=== PATIENT | female | born 1950 | race African-American/Black ===

== ENCOUNTER → 2018-03-19 | Outpatient (CLI) | payer OTHER ==
[2016-10-18 08:37] VITALS: BP 128/88
[~2018-03-19] MED LIST: CITROMA ONE
--- NOTE | 2018-03-20 07:57 | RAD ---
HISTORY: Abdominal pain. History of colon cancer. Study: PA chest with supine and upright abdominal views. Comparison: 10/17/2016 Findings: The lungs are clear. The heart size is normal. Mild tortuosity of the aorta is present. A left-cristin ed Port-A-Cath is present and the tip is in the superior vena cava. Examination of the abdomen demonstrates scattered large and small bowel gas. A moderate amount of st ool is present in the ascending colon, descending colon and region of the rectum. I see no definite evidence of bowel obstruction or pneumoperitoneum. Moderate osteopenia is present. No acute bony ab normalities are identified. IMPRESSION: 1. No radiographic evidence of acute cardiopulmonary disease or significant change is noted when com pared to the prior examination. 2. Moderate amount of stool within the ascending colon , descending colon and rectum. 3. I see no evidence of bowel obstruction or pneumoperitoneum. Reported By:
== END ==
LOC: RAD 14:29
PROVIDERS: ATTEND Obstetrics & Gynecology Obstetrics
DX: R10.84 Generalized abdominal pain (principal)
CPT/HCPCS: 74022

== ENCOUNTER 2020-01-28 19:10 | Inpatient (IN) ==
--- NOTE | 2020-01-28 19:56 | RAD ---
HISTORY:CongestionStudy: Single view chestComparison:NoneFindings:Single portable views limited by patient rotation. There is a left subclavian CVL in place appear no infiltrate, effusion, or pneumothorax identified .Cardiac and mediastinal contours are within normal limits .The soft tissues are intact .IMPRESSION:1. Negative limited portable chest radiograph.Electronically signed by: LUIS EDUARDO GRANGER (Jan 28, 2020 19:54:08)
[2020-01-28 20:00] LABS: BASOPHILS % (AUTO) 0.4 % (0.2-1.0); EOSINOPHILS # (AUTO) 0.1 x10^3/uL (0.0-0.2); EOSINOPHILS % (AUTO) 1.6 % (0.9-2.9); HEMATOCRIT 42.5 % (36.0-47.0); HEMOGLOBIN 13.7 g/dL (12.0-16.0); LYMPHOCYTES # (AUTO) 2.4 X10^3/uL (1.3-2.9); LYMPHOCYTES % (AUTO) 32.4 % (21.0-51.0); MEAN CORPUSCULAR HEMOGLOBIN 29.1 pg (27.0-34.0); MEAN CORPUSCULAR HGB CONC 32.3 g/dL (33.0-35.0); MEAN CORPUSCULAR VOLUME 90.1 fL (80.0-100.0); MEAN PLATELET VOLUME 10.4 fL (7.4-11.0); MONOCYTES # (AUTO) 0.6 x10^3/uL (0.3-0.8); MONOCYTES % (AUTO) 8.1 % (0.0-13.0); NEUTROPHILS # (AUTO) 4.2 x10^3/uL (2.2-4.8); NEUTROPHILS % (AUTO) 57.5 % (42.0-75.0); PLATELET COUNT 158 X10^3/uL (150.0-450.0); RED BLOOD COUNT 4.71 X10^6/uL (3.5-5.4); RED CELL DISTRIBUTION WIDTH 13.6 % (11.6-16.5); WHITE BLOOD COUNT 7.4 X10^3/uL (3.6-10.0)
[2020-01-28 20:19] LABS: ALANINE AMINOTRANSFERASE 14 Units/L (12-78); ALBUMIN 3.6 g/dL (3.4-5.0); ALKALINE PHOSPHATASE 91 Units/L (46-116); ASPARTATE AMINO TRANSFERASE 17 Units/L (15-37); BLOOD UREA NITROGEN 24 mg/dL (7-18); CALCIUM 9.8 mg/dL (8.5-10.1); CKMB % 0.9 % (<4); CREATINE KINASE 113 Units/L (26-192); CREATINE KINASE MB < 1.0 ng/mL (0-4.0); CREATININE 0.95 mg/dL (0.55-1.02); TOTAL PROTEIN 7.8 g/dL (6.4-8.2); TROPONIN I < 0.02 ng/mL (0-1.5); eGFR NON BLACK RACES > 60 (>60)
[2020-01-28 20:28] LABS: CHLORIDE 122 mmol/L (98-107); SODIUM 160 mmol/L (136-145)
--- NOTE | 2020-01-28 20:32 | DR.SOBA ---
HPI Time Seen Time Seen by Provider: 01/28/20 20:20 Primary Care Physician Primary Care Physician: CALISTA HPI Comment HPI Comment: PATIENT IS 69YR OLD FEMALE IN ER FROM [facility] WITH LOW HEART RATE AND LOW OXYGEN SATURATION RATE. IN ER, PULSE AND OXYGEN SATURATION WAS BACK TO NORMAL. PATIENT IS NON COMMUNICATING. NO FEVER. THICK YELLOW MUCOUS NOTED COMING FROM MOUTH. Complaints Chief Complaint Doctors Comments: FROM [facility] WITH LOW OXYGEN SATURATION AND LOW PULSE RATE. Chief Complaint:: VITALY FROM [facility] CALLED REPORT THAT PATIENTS SAT'S WERE ONLY IN THE 80'S AND HER PULSE RATE ONLY IN THE 30'S AND 40'S" Reviewed Nurses Notes Reviewed: Yes Source History Provided: [facility] Mode of Arrival Mode of Arrival: Stretcher Timing Onset of Chief Complaint: 01/28/20 Duration Duration: Minutes Context Onset:: At Rest PE Risk Factors:: Immobilization PMH PMH Past Medical History: Yes Past Medical History: Alzheimers and CVA Past Surgical History: Yes Surgical History: Abdominal Surgery and Bowel Resection Family History History of Family Medical Conditions: Yes Family Medical History: Cancer and Hypertension Social History Do you use any recreational Drugs:: No Lives Where: Prison Travel Risk Conronavirus risk: Travel to [facility] or contact with high risk person(s).: No Has patient experienced Coronavirus symptoms: No Infectious screening In the last 2 months have you had wt loss of >10#?: NO Have you traveled outside the country in the last 6 months?: No Isolation: Standard ROS Review of Systems Constitutional: No Symptoms Reported and See HPI; negative Fever Eyes: No Symptoms Reported and See HPI ENTM: No Symptoms Reported and See HPI; negative Nose Congestion Respiratoy: No Symptoms Reported and Short of Breath; negative Moist Cough and Wheezing Cardiovascular: No Symptoms Reported and See HPI Gastrointestinal/Abdominal: No Symptoms Reported and See HPI; negative Diarrhea and Vomiting Genitourinary: No Symptoms Reported Neurological: No Symptoms Reported and See HPI Musculoskeletal: No Symptoms Reported and See HPI Integumentary: No Symptoms Reported and See HPI Hematologic/Lymphatic: No Symptoms Reported and See HPI Endocrine: No Symptoms Reported and See HPI All Other Systems: Reviewed and Negative Unable to Obtain Due To: Dementia PE Vital Signs Vitals: Temperature 98 F Pulse Rate 108 Respiratory Rate 16 Blood Pressure [Left Arm] 99/64 Blood Pressure [Right Arm] 128/88 Blood Pressure 145/89 O2 Sat by Pulse Oximetry 100 General Limitations: No Limitations General Appearance: Alert and In No Apparent Distress Head Head Exam: Normal Inspection and Atraumatic Eyes Eye exam: negative Scleral Icterus and Conjunctival Injection ENT ENT Exam: Normal External Ear Exam Neck Neck Exam: Normal Inspection; negative Lymphadenopathy Chest Chest Inspection: negative Tenderness and Rash Respiratory Respiratory Exam: Normal Lung Sounds Bilat; negative Accessory Muscle Use, Chest Wall Tenderness and Respiratory Distress Respiratory Exam: Bilateral: Rhonchi and Lower: Rhonchi Cardiovascular Cardiovascular Exam: Regular Rate and Normal Rhythm Abdominal Exam Abdominal Exam: Normal Inspection, Normal Bowel Sounds and Soft; negative Tenderness Extremities Extremities Exam: Edema Back Back Exam: negative Tenderness Neurologic Neurological Exam: Alert Psychiatric Psychiatric Exam: Other (DEMENTIA.) Skin Skin Exam: Other (COLD EXTREMITIES.) MDM Differential Diagnosis Differential Diagnosis: Dysrhythmia, Mycardial Infarction, Pneumonia, Pneumotho rax and Respiratory Insufficiency COURSE Treatment Treatment: SEE ORDERS. Consultation Consultation Comments: DISCUSSED PATIENT WITH DR. GRIGSBY. HE WILL ADMIT PATIENT. ROR Labs Reviewed Laboratory Results Reviewed?: Yes Result Diagrams: 01/29/20 05:37 01/29/20 05:37 Laboratory: WBC 7.4 X10^3/uL (3.6-10.0) 01/28/20 19:45 RBC 4.71 X10^6/uL (3.5-5.4) 01/28/20 19:45 Hgb 13.7 g/dL (12.0-16.0) 01/28/20 19:45 Hct 42.5 % (36.0-47.0) 01/28/20 19:45 MCV 90.1 fL (80.0-100.0) 01/28/20 19:45 MCH 29.1 pg (27.0-34.0) 01/28/20 19:45 MCHC 32.3 g/dL (33.0-35.0) L 01/28/20 19:45 RDW 13.6 % (11.6-16.5) 01/28/20 19:45 Plt Count 158 X10^3/uL (150.0-450.0) 01/28/20 19:45 MPV 10.4 fL (7.4-11.0) 01/28/20 19:45 Neut % (Auto) 57.5 % (42.0-75.0) 01/28/20 19:45 Lymph % (Auto) 32.4 % (21.0-51.0) 01/28/20 19:45 [place] % (Auto) 8.1 % (0.0-13.0) 01/28/20 19:45 Eos % (Auto) 1.6 % (0.9-2.9) 01/28/20 19:45 Baso % (Auto) 0.4 % (0.2-1.0) 01/28/20 19:45 Neut # (Auto) 4.2 x10^3/uL (2.2-4.8) 01/28/20 19:45 Lymph # (Auto) 2.4 X10^3/uL (1.3-2.9) 01/28/20 19:45 [place] # (Auto) 0.6 x10^3/uL (0.3-0.8) 01/28/20 19:45 Eos # (Auto) 0.1 x10^3/uL (0.0-0.2) 01/28/20 19:45 Baso # (Auto) 0.0 X10^3/uL (0.0-0.1) 01/28/20 19:45 Absolute Nucleated RBC 0.0 /100WBC 01/28/20 19:45 Sodium 160 mmol/L (136-145) H* 01/28/20 19:45 Corrected Sodium TNP 01/28/20 19:45 Potassium 3.7 mmol/L (3.5-5.1) 01/28/20 19:45 Chloride 122 mmol/L (98-107) H* 01/28/20 19:45 Carbon Dioxide 30.0 mmol/L (21-32) 01/28/20 19:45 BUN 24 mg/dL (7-18) H 01/28/20 19:45 Creatinine 0.95 mg/dL (0.55-1.02) 01/28/20 19:45 Est GFR (MDRD) Af Amer > 60 (>60) 01/28/20 19:45 Est GFR (MDRD) Non-Af > 60 (>60) 01/28/20 19:45 Glucose 107 mg/dL (65-99) H 01/28/20 19:45 Calcium 9.8 mg/dL (8.5-10.1) 01/28/20 19:45 Corrected Calcium TNP 01/28/20 19:45 Total Bilirubin 0.50 mg/dL (0.2-1.0) 01/28/20 19:45 AST 17 Units/L (15-37) 01/28/20 19:45 ALT 14 Units/L (12-78) 01/28/20 19:45 Alkaline Phosphatase 91 Units/L (46-116) 01/28/20 19:45 Creatine Kinase 113 Units/L (26-192) 01/28/20 19:45 CK-MB (CK-2) < 1.0 ng/mL (0-4.0) 01/28/20 19:45 CK/CKMB % Calc 0.9 % (<4) 01/28/20 19:45 Troponin I < 0.02 ng/mL (0-1.5) 01/28/20 19:45 Total Protein 7.8 g/dL (6.4-8.2) 01/28/20 19:45 Albumin 3.6 g/dL (3.4-5.0) 01/28/20 19:45 Globulin 4.2 g/dL (2.5-4.5) 01/28/20 19:45 Albumin/Globulin Ratio 0.9 Ratio (1.1-2.1) L 01/28/20 19:45 XRAY XRAY Interpreted by: Radiologist (REPORT NOTED.) and Self EKG [place]: Normal Rhythm: ST Block: None Hypertrophy: None and LEE ST: Old, Ant, Lat and Infarct Opioid Opioid Risk Tool Age (Yasir box if 16-45): No History of Preadolescent Sexual Abuse: No Total: 0 Total Score Risk Category: Low Risk Copyright: Luc REYNA predicting aberrant behaviors Diagnosis Discharge Problem: Acute hypernatremia Instructions Forms: Excuse From Work Patient Portal
[2020-01-28] MEDS ORDERED: NS 1000 ML 1,000 ML ONE (21:12)
[2020-01-28] MEDS: NS 1/2 1000 ML IV 1,000 ML IV SCH (21:17)
[2020-01-28] MEDS ORDERED: NS 1/2 1000 ML IV 1,000 ML IV ONE (21:36)
[2020-01-28] MEDS: COLACE CAP 100 MG PO SCH (22:00)
[2020-01-28] MEDS: VITAMIN C PO SCH (22:00)
[2020-01-28 22:05] LABS: BILIRUBIN,URINE NEGATIVE (NEGATIVE); BLOOD/HEMOGLOBIN,URINE 1+ (NEGATIVE); GLUCOSE, URINE NEGATIVE (NEGATIVE); KETONES,URINE NEGATIVE (NEGATIVE); LEUKOCYTE ESTERASE ,URINE 1+ (NEGATIVE); NITRITES,URINE POSITIVE (NEGATIVE); PROTEIN,URINE 1+ (NEGATIVE); UROBILINOGEN,URINE NORMAL (NORMAL)
[2020-01-28 22:10] LABS: APPEARANCE,URINE CLOUDY (CLEAR); BACTERIA,URINE 3+ /HPF (NEGATIVE); COLOR,URINE YELLOW (YELLOW); RENAL EPITHELIAL CELLS,URINE RARE /HPF (NEGATIVE); SQUAMOUS EPITHELIAL CELL,UR RARE /HPF (NEGATIVE)
[2020-01-29] MEDS ORDERED: ROCEPHIN VIAL 1 GRAM 1 G in NS 100 ML IV + SPIKE MINIBAG* 100 ML IV SCH ×2 (01:00→21:00)
[2020-01-29] MEDS ORDERED: PHARMACY CONSULT LTC MEDICATIONS XX SCH (01:00)
[2020-01-29] MEDS ORDERED: ROCEPHIN VIAL 1 GRAM ONE (01:02)
[2020-01-29] MEDS ORDERED: NS 50 ML IV + SPIKE MINIBAG* 50 ML IV ONE (01:02)
[2020-01-29 06:06] LABS: BASOPHILS % (AUTO) 0.4 % (0.2-1.0); EOSINOPHILS # (AUTO) 0.1 x10^3/uL (0.0-0.2); EOSINOPHILS % (AUTO) 1.5 % (0.9-2.9); HEMATOCRIT 40.7 % (36.0-47.0); HEMOGLOBIN 13.1 g/dL (12.0-16.0); LYMPHOCYTES # (AUTO) 1.8 X10^3/uL (1.3-2.9); LYMPHOCYTES % (AUTO) 24.9 % (21.0-51.0); MEAN CORPUSCULAR HEMOGLOBIN 29.2 pg (27.0-34.0); MEAN CORPUSCULAR HGB CONC 32.3 g/dL (33.0-35.0); MEAN CORPUSCULAR VOLUME 90.4 fL (80.0-100.0); MEAN PLATELET VOLUME 10.7 fL (7.4-11.0); MONOCYTES # (AUTO) 0.8 x10^3/uL (0.3-0.8); MONOCYTES % (AUTO) 10.7 % (0.0-13.0); NEUTROPHILS # (AUTO) 4.5 x10^3/uL (2.2-4.8); NEUTROPHILS % (AUTO) 62.5 % (42.0-75.0); PLATELET COUNT 148 X10^3/uL (150.0-450.0); RED CELL DISTRIBUTION WIDTH 13.6 % (11.6-16.5); WHITE BLOOD COUNT 7.3 X10^3/uL (3.6-10.0)
[2020-01-29 06:31] VITALS: BMI 21.8
[2020-01-29 06:32] LABS: ALANINE AMINOTRANSFERASE 14 Units/L (12-78); ALBUMIN 3.4 g/dL (3.4-5.0); ALKALINE PHOSPHATASE 86 Units/L (46-116); ASPARTATE AMINO TRANSFERASE 18 Units/L (15-37); BLOOD UREA NITROGEN 26 mg/dL (7-18); CALCIUM 9.3 mg/dL (8.5-10.1); CARBON DIOXIDE 30.9 mmol/L (21-32); CREATINE KINASE 99 Units/L (26-192); CREATINE KINASE MB < 1.0 ng/mL (0-4.0); CREATININE 0.84 mg/dL (0.55-1.02); TOTAL PROTEIN 7.4 g/dL (6.4-8.2); TROPONIN I < 0.02 ng/mL (0-1.5); eGFR NON BLACK RACES > 60 (>60)
[2020-01-29 06:34] LABS: CHLORIDE 123 mmol/L (98-107); SODIUM 160 mmol/L (136-145)
[2020-01-29] MEDS ORDERED: MULTIVITAMIN PO SCH (09:00)
[2020-01-29] MEDS: TAB-A-VITE PO SCH (09:58)
[2020-01-29] MEDS: VITAMIN C PO SCH ×2 (09:59→21:13)
[2020-01-29] MEDS ORDERED: NS 1/2 1000 ML IV 1,000 ML IV ONE ×2 (10:19→16:17)
[2020-01-29] MEDS: NS 1/2 1000 ML IV 1,000 ML IV SCH ×3 (10:19→18:24)
[2020-01-29] MEDS: XALATAN OP SCH (10:53)
[2020-01-29 11:21] LABS: CREATINE KINASE 100 Units/L (26-192); CREATINE KINASE MB < 1.0 ng/mL (0-4.0); TROPONIN I < 0.02 ng/mL (0-1.5)
[2020-01-29] MEDS: LOVENOX INJ 40 MG SYR SC SCH (16:09)
[2020-01-29 17:06] LABS: BLOOD UREA NITROGEN 25 mg/dL (7-18); CALCIUM 9.2 mg/dL (8.5-10.1); CARBON DIOXIDE 29.1 mmol/L (21-32); CREATININE 0.86 mg/dL (0.55-1.02); eGFR NON BLACK RACES > 60 (>60)
[2020-01-29 17:09] LABS: CHLORIDE 121 mmol/L (98-107); SODIUM 157 mmol/L (136-145)
[2020-01-29] MEDS ORDERED: POTASSIUM CHLORIDE LIQ 20 MEQ UDC PO PRN (19:36)
[2020-01-29] MEDS ORDERED: KLOR-CON PO PRN (19:36)
[2020-01-29] MEDS ORDERED: POTASSIUM CHL 60 MEQ/NS 0.45% 500 ML IV PRN (19:36)
[2020-01-29] MEDS ORDERED: MICRO K EXTEN CAP 10 MEQ PO PRN (19:36)
[2020-01-29] MEDS ORDERED: POTASSIUM CHL 40 MEQ/NS 0.45% 500 ML IV PRN (19:36)
[2020-01-29] MEDS ORDERED: K-DUR TAB 20 MEQ PO PRN (19:36)
[2020-01-29] MEDS ORDERED: MAGNESIUM SULFATE 1 GRAM/100 mL PREMIX 1 GM/100 ML BAG IV PRN (19:36)
[2020-01-29] MEDS: K-RIDER 10 MEQ/NS 100 ML 10 MEQ/100 ML BAG IV PRN ×2 (21:13→22:57)
[2020-01-29] MEDS: COLACE CAP 100 MG PO SCH (21:13)
[2020-01-30] MEDS ORDERED: NS 1/2 1000 ML IV 1,000 ML IV ONE (00:08)
[2020-01-30] MEDS: NS 1/2 1000 ML IV 1,000 ML IV SCH (01:03)
[2020-01-30 06:29] LABS: BASOPHILS % (AUTO) 0.4 % (0.2-1.0); EOSINOPHILS # (AUTO) 0.3 x10^3/uL (0.0-0.2); EOSINOPHILS % (AUTO) 4.2 % (0.9-2.9); HEMATOCRIT 33.9 % (36.0-47.0); HEMOGLOBIN 11.2 g/dL (12.0-16.0); LYMPHOCYTES # (AUTO) 2.6 X10^3/uL (1.3-2.9); LYMPHOCYTES % (AUTO) 41.1 % (21.0-51.0); MEAN CORPUSCULAR HEMOGLOBIN 29.5 pg (27.0-34.0); MEAN CORPUSCULAR HGB CONC 32.9 g/dL (33.0-35.0); MEAN CORPUSCULAR VOLUME 89.9 fL (80.0-100.0); MEAN PLATELET VOLUME 10.7 fL (7.4-11.0); MONOCYTES # (AUTO) 0.5 x10^3/uL (0.3-0.8); NEUTROPHILS # (AUTO) 2.9 x10^3/uL (2.2-4.8); NEUTROPHILS % (AUTO) 46.3 % (42.0-75.0); PLATELET COUNT 120 X10^3/uL (150.0-450.0); RED BLOOD COUNT 3.78 X10^6/uL (3.5-5.4); RED CELL DISTRIBUTION WIDTH 13.6 % (11.6-16.5); WHITE BLOOD COUNT 6.4 X10^3/uL (3.6-10.0)
[2020-01-30 06:43] LABS: ALANINE AMINOTRANSFERASE 27 Units/L (12-78); ALBUMIN 2.9 g/dL (3.4-5.0); ALKALINE PHOSPHATASE 74 Units/L (46-116); ASPARTATE AMINO TRANSFERASE 35 Units/L (15-37); BLOOD UREA NITROGEN 17 mg/dL (7-18); CALCIUM 8.7 mg/dL (8.5-10.1); CARBON DIOXIDE 28.6 mmol/L (21-32); COR CA(FOR HYPOALB) 9.6 mg/dL (8.5-10.1); TOTAL PROTEIN 6.4 g/dL (6.4-8.2); eGFR NON BLACK RACES > 60 (>60)
[2020-01-30 06:55] LABS: SODIUM 154 mmol/L (136-145)
[2020-01-30 06:56] LABS: CHLORIDE 119 mmol/L (98-107)
[2020-01-30] MEDS ORDERED: ROCEPHIN VIAL 2 GRAMS IM ONE (07:40)
[2020-01-30] MEDS ORDERED: NS 100 ML IV + SPIKE MINIBAG* 0 ML IV ONE (08:20)
[2020-01-30] MEDS ORDERED: DULCOLAX SUPPOSITORY 10 MG RECTAL ONE (08:30)
[2020-01-30] MEDS ORDERED: NORCO 7.5/325 MG TAB PO ONE (08:30)
[2020-01-30] MEDS: VITAMIN C PO SCH (08:38)
[2020-01-30] MEDS: D5W 1000 ML IV 1,000 ML IV SCH ×2 (08:38→15:17)
[2020-01-30] MEDS: TAB-A-VITE PO SCH (08:38)
[2020-01-30] MEDS: LOVENOX INJ 40 MG SYR SC SCH (08:41)
[2020-01-30] MEDS: XALATAN OP SCH (08:42)
--- NOTE | 2020-01-30 15:57 | RAD ---
[id number] abdominal gas pattern is nonspecific and n onobstructive. Moderate stool is present no abnormal masses or abnormal calcifications are identified . The regional skeleton is intact.IMPRESSIONNo acute findingsModerate stoolElectronically signed by: CLAUS VACA (Jan 30, 2020 08:43:28)
[2020-01-30 16:31] LABS: BLOOD UREA NITROGEN 13 mg/dL (7-18); CALCIUM 8.4 mg/dL (8.5-10.1); CARBON DIOXIDE 31.3 mmol/L (21-32); CREATININE 0.67 mg/dL (0.55-1.02); eGFR NON BLACK RACES > 60 (>60)
[2020-01-30 16:34] LABS: CHLORIDE 115 mmol/L (98-107); SODIUM 150 mmol/L (136-145)
[2020-01-30] MEDS ORDERED: LINZESS PO ONE (16:40)
[2020-01-30 17:25] VITALS: BP 110/61
--- NOTE | 2020-02-15 22:18 | PCM.DCPLAN ---
DISCHARGE SUMMARY Admission Date Date of Admission: 01/28/20 Discharge Date Discharge Date: 01/30/20 Admission Diagnoses (1) Dehydration with hypernatremia: Status: Acute (2) Fecal impaction in rectum: Status: Acute Discharge Diagnoses Discharge Diagnosis: SAME Discharge Medications Discharge Medications: Home Medication List ascorbic acid (vitamin C) [Vitamin C] 500 mg PO BID 01/28/20 [History] docusate sodium [Colace] 100 mg PO HS 01/28/20 [History] latanoprost [Xalatan] 1 drp OPHTHALMIC (EYE) DAILY 01/28/20 [History] multivitamin 1 tab PO DAILY 01/28/20 [History] nitrofurantoin monohyd/m-cryst [Macrobid] 100 mg PO BID #10 cap 01/30/20 [Rx] Prescriptions: nitrofurantoin monohyd/m-cryst [Macrobid] VALE GRIGSBY Hospital Course Vital Signs: Temperature 97.8 F Pulse Rate [Left] 93 Pulse Rate 85 Respiratory Rate 18 Blood Pressure [Left Arm] 138/96 Blood Pressure [Right Arm] 128/88 Blood Pressure 110/61 O2 Sat by Pulse Oximetry 99 Latest Lab Results: Laboratory Last Values WBC 6.4 X10^3/uL (3.6-10.0) 01/30/20 05:47 RBC 3.78 X10^6/uL (3.5-5.4) 01/30/20 05:47 Hgb 11.2 g/dL (12.0-16.0) L 01/30/20 05:47 Hct 33.9 % (36.0-47.0) L 01/30/20 05:47 MCV 89.9 fL (80.0-100.0) 01/30/20 05:47 MCH 29.5 pg (27.0-34.0) 01/30/20 05:47 MCHC 32.9 g/dL (33.0-35.0) L 01/30/20 05:47 RDW 13.6 % (11.6-16.5) 01/30/20 05:47 Plt Count 120 X10^3/uL (150.0-450.0) L 01/30/20 05:47 MPV 10.7 fL (7.4-11.0) 01/30/20 05:47 Neut % (Auto) 46.3 % (42.0-75.0) 01/30/20 05:47 Lymph % (Auto) 41.1 % (21.0-51.0) 01/30/20 05:47 [place] % (Auto) 8.0 % (0.0-13.0) 01/30/20 05:47 Eos % (Auto) 4.2 % (0.9-2.9) H 01/30/20 05:47 Baso % (Auto) 0.4 % (0.2-1.0) 01/30/20 05:47 Neut # (Auto) 2.9 x10^3/uL (2.2-4.8) 01/30/20 05:47 Lymph # (Auto) 2.6 X10^3/uL (1.3-2.9) 01/30/20 05:47 [place] # (Auto) 0.5 x10^3/uL (0.3-0.8) 01/30/20 05:47 Eos # (Auto) 0.3 x10^3/uL (0.0-0.2) H 01/30/20 05:47 Baso # (Auto) 0.0 X10^3/uL (0.0-0.1) 01/30/20 05:47 Absolute Nucleated RBC 0.1 /100WBC 01/30/20 05:47 Sodium 150 mmol/L (136-145) H* 01/30/20 16:17 Corrected Sodium TNP 01/30/20 16:17 Potassium 4.0 mmol/L (3.5-5.1) 01/30/20 16:17 Chloride 115 mmol/L (98-107) H* 01/30/20 16:17 Carbon Dioxide 31.3 mmol/L (21-32) 01/30/20 16:17 BUN 13 mg/dL (7-18) 01/30/20 16:17 Creatinine 0.67 mg/dL (0.55-1.02) 01/30/20 16:17 Est GFR (MDRD) Af Amer > 60 (>60) 01/30/20 16:17 Est GFR (MDRD) Non-Af > 60 (>60) 01/30/20 16:17 Glucose 106 mg/dL (65-99) H 01/30/20 16:17 Calcium 8.4 mg/dL (8.5-10.1) L 01/30/20 16:17 Corrected Calcium 9.6 mg/dL (8.5-10.1) 01/30/20 05:47 Magnesium 2.3 mg/dL (1.7-2.9) 01/30/20 05:47 Total Bilirubin 0.50 mg/dL (0.2-1.0) 01/30/20 05:47 AST 35 Units/L (15-37) 01/30/20 05:47 ALT 27 Units/L (12-78) 01/30/20 05:47 Alkaline Phosphatase 74 Units/L (46-116) 01/30/20 05:47 Creatine Kinase 100 Units/L (26-192) 01/29/20 10:47 CK-MB (CK-2) < 1.0 ng/mL (0-4.0) 01/29/20 10:47 CK/CKMB % Calc 1.0 % (<4) 01/29/20 10:47 Troponin I < 0.02 ng/mL (0-1.5) 01/29/20 10:47 Total Protein 6.4 g/dL (6.4-8.2) 01/30/20 05:47 Albumin 2.9 g/dL (3.4-5.0) L 01/30/20 05:47 Globulin 3.5 g/dL (2.5-4.5) 01/30/20 05:47 Albumin/Globulin Ratio 0.8 Ratio (1.1-2.1) L 01/30/20 05:47 Specimen Type Catherized urine 01/28/20 22:00 Urine Color Yellow (YELLOW) 01/28/20 22:00 Urine Appearance Cloudy (CLEAR) 01/28/20 22:00 Urine pH 8.0 (5.0 - 8.0) 01/28/20 22:00 Ur Specific [place] 1.015 (1.000-1.030) 01/28/20 22:00 Urine Protein 1+ (NEGATIVE) 01/28/20 22:00 Urine Glucose (UA) Negative (NEGATIVE) 01/28/20 22:00 Urine Ketones Negative (NEGATIVE) 01/28/20 22:00 Urine Occult Blood 1+ (NEGATIVE) 01/28/20 22:00 Urine Nitrite Positive (NEGATIVE) 01/28/20 22:00 Urine Bilirubin Negative (NEGATIVE) 01/28/20 22:00 Urine Urobilinogen Normal (NORMAL) 01/28/20 22:00 Ur Leukocyte Esterase 1+ (NEGATIVE) 01/28/20 22:00 Urine RBC 3-5 /HPF (0-3) A 01/28/20 22:00 Urine WBC 5-10 /HPF (0-5) A 01/28/20 22:00 Ur Squamous Epith Cells Rare /HPF (NEGATIVE) 01/28/20 22:00 Ur Renal Epithelial Cell Rare /HPF (NEGATIVE) 01/28/20 22:00 Urine Bacteria 3+ /HPF (NEGATIVE) 01/28/20 22:00 Ur Culture Indicated? Yes/culture set up 01/28/20 22:00 Hospital Course: The patient was admitted and treated with IVF to improve prerenal and hypernatremic state. Treated with cathartics and discharged home in stable condition to be followed up in ID on routine rounds. Instructions Forms: Patient Portal
== END 2020-01-30 17:05 | DRG 641 ==
LOC: ER 19:11 → ICU 20:46
PROVIDERS: ADMIT Obstetrics & Gynecology Obstetrics; ATTEND Obstetrics & Gynecology Obstetrics
DX: N39.0 Urinary tract infection, site not specified; R94.31 Abnormal electrocardiogram [ECG] [EKG]; Z86.73 Personal history of transient ischemic attack (TIA), and cerebral infarction without residual deficits; K59.09 Other constipation; E86.0 Dehydration; E87.0 Hyperosmolality and hypernatremia
CPT/HCPCS: 36415; 51701; 71010; 71045; 74000; 74018; 80048; 80053; 81001; 82550; 82553; 83735; 84484; 85025; 87086; 93005; 96365; 99284; A4222; J0696; J1650; J3480; J7050; J7060

== ENCOUNTER 2020-03-05 19:06 | Inpatient (IN) ==
[2020-03-05] MEDS ORDERED: NS 1000 ML 1,000 ML IV ONE (19:18)
--- NOTE | 2020-03-05 19:24 | DR.AMS ---
HPI <ALLEN MENA - Last Filed: 03/05/20 23:58> Time Seen Time Seen by Provider: 03/05/20 19:10 PCP Primary Care Physician: CALISTA LUTZ Comment HPI Comment: PATIENT IS 69YR OLD FEMALE BROUGHT TO ER ON A STRETCHER WITH AMS AND LOW OXYGEN SATURATION. SHE IS RESPONDING TO PAINFULL STIMULI. Complaint Cheif Complaint Doctors Comments: AMS, LOW OXYGEN SATURATION NOTED AT THE [facility]. Chief Complaint:: PT IN ED VIA STRETCHER PER SENIOR LIVING STAFF WITH C/O LOW O2 SAT. STAFF STATES PT IS FULL CODE. COVID-19 Coronavirus risk:travel/contact w/high risk person: No Has patient experienced Coronavirus symptoms: No Reviewed Nurses Notes Reviewed: Yes Source History Provided: Alf and Other Mode of Arrival Mode of Arrival: Stretcher Timing Onset of Chief Complaint: 03/05/20 Came On: Suddenly Symptoms: Unchanged Duration Duration: Constant Duration: Minutes Quality Quality: Decreased Alertness Severity Severity: Unresponsive Context Recent: denies Fever, Nausea, Vomiting and Rash History Of: CVA and Dementia Associated Signs and Symptoms Associated Signs and Symptoms: Generalized Weakness and Unresponsiveness PMH <ALLEN MENA - Last Filed: 03/05/20 23:58> PMH Past Medical History: Yes Past Medical History: Alzheimers and CVA Past Surgical History: Yes Surgical History: Abdominal Surgery and Bowel Resection Family History History of Family Medical Conditions: Yes Family Medical History: Cancer and Hypertension Social History Do you use any recreational Drugs:: No Travel Risk Coronavirus risk:travel/contact w/high risk person: No Has patient experienced Coronavirus symptoms: No Infectious screening In the last 2 months have you had wt loss of >10#?: NO Have you had fever, night sweats or hemotysis?: No Have you traveled outside the country in the last 6 months?: No Isolation: Standard ROS <ALLEN MENA - Last Filed: 03/05/20 23:58> Review of Systems Constitutional: See HPI, Weakness and Other (UNRESPONSIVE.) Eyes: See HPI ENTM: See HPI Respiratoy: See HPI and Short of Breath; negative Wheezing Cardiovascular: See HPI Gastrointestinal/Abdominal: See HPI; negative Vomiting Genitourinary: See HPI Neurological: See HPI and Other (UNRESPONSIVE.) Musculoskeletal: See HPI Integumentary: See HPI; negative Juandice Hematologic/Lymphatic: See HPI Endocrine: See HPI and Other (UN) Psychiatric: See HPI All Other Systems: Reviewed and Negative Unable to Obtain Due To: Altered mental status and Dementia PE <ALLEN MENA - Last Filed: 03/05/20 23:58> Vitals Vital Signs: Temp Pulse Pulse Resp BP BP BP 03/05/20 22:00 101 H 19 121/58 03/05/20 21:00 100 H 20 126/91 03/05/20 19:11 96.7 F L 113 H 33 H 98/64 01/30/20 16:00 110/61 01/28/20 22:06 138/96 10/18/16 08:00 128/88 Pulse Ox 03/05/20 22:00 100 03/05/20 21:00 100 03/05/20 19:11 92 L 01/30/20 16:00 01/28/20 22:06 10/18/16 08:00 General Limitations: Altered Mental Status (UNRESPONSIVE.) General Appearance: In Distress Head Head Exam: Atraumatic Head Exam Physical: Other (NONE REPORTED.) Eyes Eye exam: negative Conjunctival Injection <Gardenia Jovel - Last Filed: 03/05/20 23:29> Vitals Vital Signs: Temp Pulse Pulse Resp BP BP BP 03/05/20 22:00 101 H 19 121/58 03/05/20 21:00 100 H 20 126/91 03/05/20 19:11 96.7 F L 113 H 33 H 98/64 01/30/20 16:00 110/61 01/28/20 22:06 138/96 10/18/16 08:00 128/88 Pulse Ox 03/05/20 22:00 100 03/05/20 21:00 100 03/05/20 19:11 92 L 01/30/20 16:00 01/28/20 22:06 10/18/16 08:00 MDM <ALLEN MENA - Last Filed: 03/05/20 23:58> Differential Diagnosis Metabolic: Dehydration, Hypercalcemia, Hypernatremia, Hypoglycemia, Hyponatremia and Hypoxemia Infectious: Sepsis and UTI COURSE <ALLEN MENA - Last Filed: 03/05/20 23:58> Treatment Treatment: SEE ORDERS. PATIENT SIGN OUT TO DR. JOVEL. ROR <ALLEN MENA - Last Filed: 03/05/20 23:58> Labs Reviewed Laboratory Results Reviewed?: Yes Result Diagrams: 03/05/20 20:11 03/05/20 20:11 Laboratory: WBC 12.4 X10^3/uL (3.6-10.0) H 03/05/20 20:11 RBC 4.95 X10^6/uL (3.5-5.4) 03/05/20 20:11 Hgb 14.3 g/dL (12.0-16.0) 03/05/20 20:11 Hct 46.0 % (36.0-47.0) 03/05/20 20:11 MCV 92.9 fL (80.0-100.0) 03/05/20 20:11 MCH 28.8 pg (27.0-34.0) 03/05/20 20:11 MCHC 31.0 g/dL (33.0-35.0) L 03/05/20 20:11 RDW 14.4 % (11.6-16.5) 03/05/20 20:11 Plt Count 89 X10^3/uL (150.0-450.0) L 03/05/20 20:11 MPV 11.8 fL (7.4-11.0) H 03/05/20 20:11 Neut % (Auto) 76.8 % (42.0-75.0) H 03/05/20 20:11 Lymph % (Auto) 14.7 % (21.0-51.0) L 03/05/20 20:11 Swisher % (Auto) 7.9 % (0.0-13.0) 03/05/20 20:11 Eos % (Auto) 0.3 % (0.9-2.9) L 03/05/20 20:11 Baso % (Auto) 0.3 % (0.2-1.0) 03/05/20 20:11 Neut # (Auto) 9.5 x10^3/uL (2.2-4.8) H 03/05/20 20:11 Lymph # (Auto) 1.8 X10^3/uL (1.3-2.9) 03/05/20 20:11 Swisher # (Auto) 1.0 x10^3/uL (0.3-0.8) H 03/05/20 20:11 Eos # (Auto) 0.0 x10^3/uL (0.0-0.2) 03/05/20 20:11 Baso # (Auto) 0.0 X10^3/uL (0.0-0.1) 03/05/20 20:11 Absolute Nucleated RBC 0.7 /100WBC 03/05/20 20:11 Sodium 184 mmol/L (136-145) H* 03/05/20 20:11 Corrected Sodium 188 mmol/L (136-145) H 03/05/20 20:11 Potassium 4.3 mmol/L (3.5-5.1) 03/05/20 20:11 Chloride 141 mmol/L (98-107) H* 03/05/20 20:11 Carbon Dioxide 27.7 mmol/L (21-32) 03/05/20 20:11 BUN 95 mg/dL (7-18) H 03/05/20 20:11 Creatinine 2.70 mg/dL (0.55-1.02) H 03/05/20 20:11 Est GFR (MDRD) Af Amer 22 (>60) L 03/05/20 20:11 Est GFR (MDRD) Non-Af 18 (>60) L 03/05/20 20:11 Glucose 250 mg/dL (65-99) H 03/05/20 20:11 POC Glucose (mg/dL) 99 mg/dL (65-99) 03/05/20 20:20 Calcium 9.2 mg/dL (8.5-10.1) 03/05/20 20:11 Corrected Calcium 10.1 mg/dL (8.5-10.1) 03/05/20 20:11 Total Bilirubin 1.10 mg/dL (0.2-1.0) H 03/05/20 20:11 AST 50 Units/L (15-37) H 03/05/20 20:11 ALT 28 Units/L (12-78) 03/05/20 20:11 Alkaline Phosphatase 109 Units/L (46-116) 03/05/20 20:11 Creatine Kinase 1267 Units/L (26-192) H 03/05/20 20:11 CK-MB (CK-2) 5.5 ng/mL (0-4.0) H* 03/05/20 20:11 CK/CKMB % Calc 0.4 % (<4) 03/05/20 20:11 Troponin I < 0.02 ng/mL (0-1.5) 03/05/20 20:11 Total Protein 7.9 g/dL (6.4-8.2) 03/05/20 20:11 Albumin 2.9 g/dL (3.4-5.0) L 03/05/20 20:11 Globulin 5.0 g/dL (2.5-4.5) H 03/05/20 20:11 Albumin/Globulin Ratio 0.6 Ratio (1.1-2.1) L 03/05/20 20:11 Specimen Type Catherized urine 03/05/20 21:02 Urine Color Dark yellow (YELLOW) 03/05/20 21:02 Urine Appearance Hazy (CLEAR) 03/05/20 21:02 Urine pH 5.0 (5.0 - 8.0) 03/05/20 21:02 Ur Specific Keller 1.020 (1.000-1.030) 03/05/20 21:02 Urine Protein 2+ (NEGATIVE) 03/05/20 21:02 Urine Glucose (UA) Negative (NEGATIVE) 03/05/20 21: Urine Ketones Negative (NEGATIVE) 03/05/20 21: Urine Occult Blood 2+ (NEGATIVE) 03/05/20 21:02 Urine Nitrite Negative (NEGATIVE) 03/05/20 21: Urine Bilirubin Negative (NEGATIVE) 03/05/20 21: Urine Urobilinogen 1+ (NORMAL) 03/05/20 21:02 Ur Leukocyte Esterase 1+ (NEGATIVE) 03/05/20 21:02 Urine RBC 5-10 /HPF (0-3) A 03/05/20 21:02 Urine WBC 10-20 /HPF (0-5) A 03/05/20 21:02 Ur Squamous Epith Cells Few /HPF (NEGATIVE) 03/05/20 21:02 Amorphous Sediment 1+ /HPF (NEGATIVE) 03/05/20 21:02 Urine Bacteria Trace /HPF (NEGATIVE) 03/05/20 21:02 Hyaline Casts Few /LPF (NEGATIVE) 03/05/20 21:02 Urine Mucus Moderate /HPF (NEGATIVE) 03/05/20 21:02 Ur Culture Indicated? Yes/culture set up 03/05/20 21:02 XRAY XRAY Interpreted by: Radiologist (REPORT NOTED.) and Self <Gardenia Jovel - Last Filed: 03/05/20 23:29> Labs Reviewed Laboratory: WBC 12.4 X10^3/uL (3.6-10.0) H 03/05/20 20:11 RBC 4.95 X10^6/uL (3.5-5.4) 03/05/20 20:11 Hgb 14.3 g/dL (12.0-16.0) 03/05/20 20:11 Hct 46.0 % (36.0-47.0) 03/05/20 20:11 MCV 92.9 fL (80.0-100.0) 03/05/20 20:11 MCH 28.8 pg (27.0-34.0) 03/05/20 20:11 MCHC 31.0 g/dL (33.0-35.0) L 03/05/20 20:11 RDW 14.4 % (11.6-16.5) 03/05/20 20:11 Plt Count 89 X10^3/uL (150.0-450.0) L 03/05/20 20:11 MPV 11.8 fL (7.4-11.0) H 03/05/20 20:11 Neut % (Auto) 76.8 % (42.0-75.0) H 03/05/20 20:11 Lymph % (Auto) 14.7 % (21.0-51.0) L 03/05/20 20:11 Swisher % (Auto) 7.9 % (0.0-13.0) 03/05/20 20:11 Eos % (Auto) 0.3 % (0.9-2.9) L 03/05/20 20:11 Baso % (Auto) 0.3 % (0.2-1.0) 03/05/20 20:11 Neut # (Auto) 9.5 x10^3/uL (2.2-4.8) H 03/05/20 20:11 Lymph # (Auto) 1.8 X10^3/uL (1.3-2.9) 03/05/20 20:11 Swisher # (Auto) 1.0 x10^3/uL (0.3-0.8) H 03/05/20 20:11 Eos # (Auto) 0.0 x10^3/uL (0.0-0.2) 03/05/20 20:11 Baso # (Auto) 0.0 X10^3/uL (0.0-0.1) 03/05/20 20:11 Absolute Nucleated RBC 0.7 /100WBC 03/05/20 20:11 Sodium 184 mmol/L (136-145) H* 03/05/20 20:11 Corrected Sodium 188 mmol/L (136-145) H 03/05/20 20:11 Potassium 4.3 mmol/L (3.5-5.1) 03/05/20 20:11 Chloride 141 mmol/L (98-107) H* 03/05/20 20:11 Carbon Dioxide 27.7 mmol/L (21-32) 03/05/20 20:11 BUN 95 mg/dL (7-18) H 03/05/20 20:11 Creatinine 2.70 mg/dL (0.55-1.02) H 03/05/20 20:11 Est GFR (MDRD) Af Amer 22 (>60) L 03/05/20 20:11 Est GFR (MDRD) Non-Af 18 (>60) L 03/05/20 20:11 Glucose 250 mg/dL (65-99) H 03/05/20 20:11 POC Glucose (mg/dL) 99 mg/dL (65-99) 03/05/20 20:20 Calcium 9.2 mg/dL (8.5-10.1) 03/05/20 20:11 Corrected Calcium 10.1 mg/dL (8.5-10.1) 03/05/20 20:11 Total Bilirubin 1.10 mg/dL (0.2-1.0) H 03/05/20 20:11 AST 50 Units/L (15-37) H 03/05/20 20:11 ALT 28 Units/L (12-78) 03/05/20 20:11 Alkaline Phosphatase 109 Units/L (46-116) 03/05/20 20:11 Creatine Kinase 1267 Units/L (26-192) H 03/05/20 20:11 CK-MB (CK-2) 5.5 ng/mL (0-4.0) H* 03/05/20 20:11 CK/CKMB % Calc 0.4 % (<4) 03/05/20 20:11 Troponin I < 0.02 ng/mL (0-1.5) 03/05/20 20:11 Total Protein 7.9 g/dL (6.4-8.2) 03/05/20 20:11 Albumin 2.9 g/dL (3.4-5.0) L 03/05/20 20:11 Globulin 5.0 g/dL (2.5-4.5) H 03/05/20 20:11 Albumin/Globulin Ratio 0.6 Ratio (1.1-2.1) L 03/05/20 20:11 Specimen Type Catherized urine 03/05/20 21:02 Urine Color Dark yellow (YELLOW) 03/05/20 21:02 Urine Appearance Hazy (CLEAR) 03/05/20 21:02 Urine pH 5.0 (5.0 - 8.0) 03/05/20 21:02 Ur Specific Keller 1.020 (1.000-1.030) 03/05/20 21:02 Urine Protein 2+ (NEGATIVE) 03/05/20 21: Urine Glucose (UA) Negative (NEGATIVE) 03/05/20 21: Urine Ketones Negative (NEGATIVE) 03/05/20 21:02 Urine Occult Blood 2+ (NEGATIVE) 03/05/20 21: Urine Nitrite Negative (NEGATIVE) 03/05/20 21: Urine Bilirubin Negative (NEGATIVE) 03/05/20 21: Urine Urobilinogen 1+ (NORMAL) 03/05/20 21:02 Ur Leukocyte Esterase 1+ (NEGATIVE) 03/05/20 21:02 Urine RBC 5-10 /HPF (0-3) A 03/05/20 21:02 Urine WBC 10-20 /HPF (0-5) A 03/05/20 21:02 Ur Squamous Epith Cells Few /HPF (NEGATIVE) 03/05/20 21:02 Amorphous Sediment 1+ /HPF (NEGATIVE) 03/05/20 21:02 Urine Bacteria Trace /HPF (NEGATIVE) 03/05/20 21:02 Hyaline Casts Few /LPF (NEGATIVE) 03/05/20 21:02 Urine Mucus Moderate /HPF (NEGATIVE) 03/05/20 21:02 Ur Culture Indicated? Yes/culture set up 03/05/20 21:02 XRAY X-ray Results: CXR: No acute cardiopulmonary changes seen. Opioid <ALLEN MENA - Last Filed: 03/05/20 23:58> Opioid Risk Tool Age (Yasir box if 16-45): No History of Preadolescent Sexual Abuse: No Total: 0 Total Score Risk Category: Low Risk Copyright: Luc REYNA predicting aberrant behaviors <Gardenia Jovel - Last Filed: 03/05/20 23:29> Opioid Risk Tool Total: 0 Total Score Risk Category: Low Risk <ALLEN MENA - Last Filed: 03/05/20 23:58> Diagnosis Discharge Problem: Hypernatremia, Hypoglycemia, Cystitis, Acute dehydration Dementia Qualifiers: Dementia type: Alzheimer's disease Alzheimer's disease onset: unspecified onset Dementia behavioral disturbance: without behavioral disturbance Qualified Code(s): G30.9 - Alzheimer's disease, unspecified Acute renal failure (ARF) Qualifiers: Acute renal failure type: unspecified Qualified Code(s): N17.9 - Acute kidney failure, unspecified Instructions Forms: Excuse From Work Precautions for COVID19 Patient Portal Social Distancing
[2020-03-05] MEDS ORDERED: D50W ABBOJECT SYR ONE (19:44)
--- NOTE | 2020-03-05 19:44 | RAD ---
HISTORYDyspnea.STUDYCHEST, 1 VIEWCOMPARISONMar 2019.FINDINGSThe trachea is midline. The cardiac silhouette is stable. The lungs are relatively clear without focal infiltrate or effusion. The bony thorax is unremarkable. The patient's head/chin obscures the entire left lung apex. A left-sided CVL/ian catheter is stable. At some point, formal PA and lateral views of the chest are recommended in order to completely exclude an infiltrate in the retrocardiac region of the chest.IMPRESSIONNo acute cardiopulmonary changes seen.Electronically signed by: JYOTI THURMAN III (Mar 05, 2020 19:42:47)
[2020-03-05] MEDS ORDERED: D50W ABBOJECT SYR IV ONE (19:49)
[2020-03-05] MEDS ORDERED: NS 1000 ML 1,000 ML ONE (19:51)
[2020-03-05 20:27] LABS: BASOPHILS % (AUTO) 0.3 % (0.2-1.0); EOSINOPHILS % (AUTO) 0.3 % (0.9-2.9); HEMOGLOBIN 14.3 g/dL (12.0-16.0); LYMPHOCYTES # (AUTO) 1.8 X10^3/uL (1.3-2.9); LYMPHOCYTES % (AUTO) 14.7 % (21.0-51.0); MEAN CORPUSCULAR HEMOGLOBIN 28.8 pg (27.0-34.0); MEAN CORPUSCULAR VOLUME 92.9 fL (80.0-100.0); MEAN PLATELET VOLUME 11.8 fL (7.4-11.0); MONOCYTES % (AUTO) 7.9 % (0.0-13.0); NEUTROPHILS # (AUTO) 9.5 x10^3/uL (2.2-4.8); NEUTROPHILS % (AUTO) 76.8 % (42.0-75.0); PLATELET COUNT 89 X10^3/uL (150.0-450.0); RED BLOOD COUNT 4.95 X10^6/uL (3.5-5.4); RED CELL DISTRIBUTION WIDTH 14.4 % (11.6-16.5); WHITE BLOOD COUNT 12.4 X10^3/uL (3.6-10.0)
[2020-03-05 21:17] LABS: BILIRUBIN,URINE NEGATIVE (NEGATIVE); BLOOD/HEMOGLOBIN,URINE 2+ (NEGATIVE); GLUCOSE, URINE NEGATIVE (NEGATIVE); KETONES,URINE NEGATIVE (NEGATIVE); LEUKOCYTE ESTERASE ,URINE 1+ (NEGATIVE); NITRITES,URINE NEGATIVE (NEGATIVE); PROTEIN,URINE 2+ (NEGATIVE); UROBILINOGEN,URINE 1+ (NORMAL)
[2020-03-05 21:23] LABS: APPEARANCE,URINE HAZY (CLEAR); COLOR,URINE DARK YELLOW (YELLOW)
[2020-03-05 21:24] LABS: AMORPHOUS SEDIMENT,UR 1+ /HPF (NEGATIVE); BACTERIA,URINE TRACE /HPF (NEGATIVE); SQUAMOUS EPITHELIAL CELL,UR FEW /HPF (NEGATIVE)
[2020-03-05 21:25] LABS: HYALINE CASTS, URINE FEW /LPF (NEGATIVE); MUCUS,URINE MODERATE /HPF (NEGATIVE)
[2020-03-05 21:28] LABS: ALANINE AMINOTRANSFERASE 28 Units/L (12-78); ALBUMIN 2.9 g/dL (3.4-5.0); ALKALINE PHOSPHATASE 109 Units/L (46-116); ASPARTATE AMINO TRANSFERASE 50 Units/L (15-37); BLOOD UREA NITROGEN 95 mg/dL (7-18); CALCIUM 9.2 mg/dL (8.5-10.1); CARBON DIOXIDE 27.7 mmol/L (21-32); COR CA(FOR HYPOALB) 10.1 mg/dL (8.5-10.1); COR NA(FOR HYPERGLY) 188 mmol/L (136-145); TOTAL PROTEIN 7.9 g/dL (6.4-8.2); TROPONIN I < 0.02 ng/mL (0-1.5); eGFR NON BLACK RACES 18 (>60)
[2020-03-05 21:35] LABS: SODIUM 184 mmol/L (136-145)
[2020-03-05 21:36] LABS: CHLORIDE 141 mmol/L (98-107); CKMB % 0.4 % (<4); CREATINE KINASE 1267 Units/L (26-192); CREATINE KINASE MB 5.5 ng/mL (0-4.0)
[2020-03-05] MEDS ORDERED: ROCEPHIN VIAL 500 MG 500 MG in NS 25 ML IV 25 ML IV ONE (21:54)
[2020-03-05] MEDS ORDERED: ROCEPHIN VIAL 500 MG ONE (21:58)
[2020-03-05] MEDS ORDERED: NS 100 ML IV + SPIKE MINIBAG* 100 ML IV ONE (21:58)
[2020-03-05] MEDS ORDERED: D5W 1000 ML IV 1,000 ML IV ONE (21:58)
[2020-03-05] MEDS ORDERED: D5W 1000 ML IV 1,000 ML IV SCH (22:00)
[2020-03-06] MEDS ORDERED: PHARMACY CONSULT LTC MEDICATIONS XX SCH (03:00)
[2020-03-06 06:54] LABS: BASOPHILS # (AUTO) 0.1 X10^3/uL (0.0-0.1); BASOPHILS % (AUTO) 0.4 % (0.2-1.0); EOSINOPHILS % (AUTO) 0.3 % (0.9-2.9); HEMATOCRIT 42.5 % (36.0-47.0); HEMOGLOBIN 13.4 g/dL (12.0-16.0); LYMPHOCYTES # (AUTO) 1.2 X10^3/uL (1.3-2.9); LYMPHOCYTES % (AUTO) 8.3 % (21.0-51.0); MEAN CORPUSCULAR HEMOGLOBIN 29.2 pg (27.0-34.0); MEAN CORPUSCULAR HGB CONC 31.4 g/dL (33.0-35.0); MEAN PLATELET VOLUME 10.7 fL (7.4-11.0); MONOCYTES # (AUTO) 0.9 x10^3/uL (0.3-0.8); MONOCYTES % (AUTO) 5.8 % (0.0-13.0); NEUTROPHILS # (AUTO) 12.9 x10^3/uL (2.2-4.8); NEUTROPHILS % (AUTO) 85.2 % (42.0-75.0); PLATELET COUNT 62 X10^3/uL (150.0-450.0); RED BLOOD COUNT 4.57 X10^6/uL (3.5-5.4); RED CELL DISTRIBUTION WIDTH 14.3 % (11.6-16.5); WHITE BLOOD COUNT 15.1 X10^3/uL (3.6-10.0)
[2020-03-06 07:35] LABS: PLATELET MORPHOLOGY COMMENT NORMAL (NORMAL)
[2020-03-06 07:40] LABS: ALANINE AMINOTRANSFERASE 31 Units/L (12-78); ALBUMIN 2.6 g/dL (3.4-5.0); ALKALINE PHOSPHATASE 103 Units/L (46-116); ASPARTATE AMINO TRANSFERASE 70 Units/L (15-37); BLOOD UREA NITROGEN 95 mg/dL (7-18); CALCIUM 8.6 mg/dL (8.5-10.1); CARBON DIOXIDE 25.1 mmol/L (21-32); COR CA(FOR HYPOALB) 9.7 mg/dL (8.5-10.1); CREATININE 2.38 mg/dL (0.55-1.02); TOTAL PROTEIN 7.3 g/dL (6.4-8.2); TROPONIN I < 0.02 ng/mL (0-1.5); eGFR NON BLACK RACES 21 (>60)
[2020-03-06 08:20] LABS: COR NA(FOR HYPERGLY) 183 mmol/L (136-145)
[2020-03-06] MEDS ORDERED: LR 1000 ML IV 1,000 ML IV ONE ×2 (08:51→13:30)
[2020-03-06 09:26] LABS: SODIUM 180 mmol/L (136-145)
[2020-03-06 09:27] LABS: CHLORIDE 140 mmol/L (98-107); CREATINE KINASE MB 6.9 ng/mL (0-4.0)
--- NOTE | 2020-03-06 10:11 | RAD ---
HISTORYFAILURE TO THRIVE, ANOREIXIA Relevant Clinical [id number] plate and upright evaluation of the abdomen demon strates a [normal bowel gas with mild feces scattered throughout the colon which is slightly less pro minent. There is no pneumoperitoneum. No pathological soft tissue mass or calcification can be obser shirlene. The bony structures are grossly intact.IMPRESSIONSlowly resolving constipation with a nonspecif ic gas pattern.Electronically signed by: EBER PAN (Mar 06, 2020 10:10:47)
[2020-03-06 10:15] LABS: BILIRUBIN,URINE NEGATIVE (NEGATIVE); BLOOD/HEMOGLOBIN,URINE 1+ (NEGATIVE); GLUCOSE, URINE NEGATIVE (NEGATIVE); KETONES,URINE NEGATIVE (NEGATIVE); LEUKOCYTE ESTERASE ,URINE 1+ (NEGATIVE); NITRITES,URINE NEGATIVE (NEGATIVE); PROTEIN,URINE 2+ (NEGATIVE); UROBILINOGEN,URINE NORMAL (NORMAL)
[2020-03-06 10:29] LABS: APPEARANCE,URINE HAZY (CLEAR); COLOR,URINE YELLOW (YELLOW)
[2020-03-06 10:30] LABS: BACTERIA,URINE 1+ /HPF (NEGATIVE); RBC,URINE 0-2 /HPF (0-3); SQUAMOUS EPITHELIAL CELL,UR RARE /HPF (NEGATIVE)
[2020-03-06] MEDS: D5 1/2 NS 1000 ML 1,000 ML IV SCH ×2 (12:00→22:36)
[2020-03-06 12:19] VITALS: BMI 22.5
[2020-03-06 13:23] LABS: TROPONIN I < 0.02 ng/mL (0-1.5)
[2020-03-06 14:25] LABS: CKMB % 0.6 % (<4); CREATINE KINASE 1502 Units/L (26-192)
[2020-03-06 14:27] LABS: CREATINE KINASE MB 8.9 ng/mL (0-4.0)
[2020-03-06 14:30] LABS: CKMB % 0.4 % (<4); CREATINE KINASE 1774 Units/L (26-192)
[2020-03-06] MEDS: ROCEPHIN VIAL 1 GRAM 1 G in NS 100 ML IV + SPIKE MINIBAG* 100 ML IV SCH (21:50)
[2020-03-07] MEDS: D5 1/2 NS 1000 ML 1,000 ML IV SCH ×2 (02:00→09:40)
[2020-03-07] MEDS ORDERED: LR 1000 ML IV 1,000 ML IV ONE ×2 (03:00→04:08)
[2020-03-07 06:38] LABS: BASOPHILS % (AUTO) 0.2 % (0.2-1.0); EOSINOPHILS # (AUTO) 0.3 x10^3/uL (0.0-0.2); EOSINOPHILS % (AUTO) 3.2 % (0.9-2.9); LYMPHOCYTES # (AUTO) 1.3 X10^3/uL (1.3-2.9); MEAN CORPUSCULAR HEMOGLOBIN 29.5 pg (27.0-34.0); MEAN CORPUSCULAR HGB CONC 31.9 g/dL (33.0-35.0); MEAN CORPUSCULAR VOLUME 92.5 fL (80.0-100.0); MONOCYTES # (AUTO) 0.8 x10^3/uL (0.3-0.8); MONOCYTES % (AUTO) 8.2 % (0.0-13.0); NEUTROPHILS # (AUTO) 7.3 x10^3/uL (2.2-4.8); NEUTROPHILS % (AUTO) 75.4 % (42.0-75.0); PLATELET COUNT 41 X10^3/uL (150.0-450.0); RED BLOOD COUNT 3.57 X10^6/uL (3.5-5.4); RED CELL DISTRIBUTION WIDTH 14.4 % (11.6-16.5); WHITE BLOOD COUNT 9.7 X10^3/uL (3.6-10.0)
[2020-03-07 07:00] LABS: CARBON DIOXIDE 25.6 mmol/L (21-32); COR CA(FOR HYPOALB) 9.6 mg/dL (8.5-10.1); CREATININE 1.64 mg/dL (0.55-1.02); TOTAL PROTEIN 5.5 g/dL (6.4-8.2)
[2020-03-07 07:03] LABS: PLATELET MORPHOLOGY COMMENT NORMAL (NORMAL)
[2020-03-07 07:36] LABS: HEMOGLOBIN 10.5 g/dL (12.0-16.0)
[2020-03-07] MEDS ORDERED: D5 1/4 NS 1000 ML 1,000 ML IV ONE (10:03)
[2020-03-07] MEDS: D5 IV SCH ×2 (17:49→21:25)
[2020-03-07] MEDS: KCL IV SCH ×2 (17:49→21:25)
[2020-03-07] MEDS: 1/4 NS IV SCH ×2 (17:49→21:25)
[2020-03-07] MEDS: ROCEPHIN VIAL 1 GRAM 1 G in NS 100 ML IV + SPIKE MINIBAG* 100 ML IV SCH (21:26)
[2020-03-08] MEDS: KCL IV SCH ×3 (02:49→19:15)
[2020-03-08] MEDS: D5 IV SCH ×3 (02:49→19:15)
[2020-03-08] MEDS: 1/4 NS IV SCH ×3 (02:49→19:15)
[2020-03-08 06:01] LABS: BASOPHILS % (AUTO) 0.2 % (0.2-1.0); EOSINOPHILS # (AUTO) 0.3 x10^3/uL (0.0-0.2); HEMATOCRIT 31.6 % (36.0-47.0); HEMOGLOBIN 10.3 g/dL (12.0-16.0); LYMPHOCYTES # (AUTO) 1.1 X10^3/uL (1.3-2.9); LYMPHOCYTES % (AUTO) 14.1 % (21.0-51.0); MEAN CORPUSCULAR HEMOGLOBIN 30.1 pg (27.0-34.0); MEAN CORPUSCULAR HGB CONC 32.6 g/dL (33.0-35.0); MEAN CORPUSCULAR VOLUME 92.4 fL (80.0-100.0); MEAN PLATELET VOLUME 12.8 fL (7.4-11.0); MONOCYTES # (AUTO) 0.6 x10^3/uL (0.3-0.8); MONOCYTES % (AUTO) 7.5 % (0.0-13.0); NEUTROPHILS # (AUTO) 5.7 x10^3/uL (2.2-4.8); NEUTROPHILS % (AUTO) 74.2 % (42.0-75.0); PLATELET COUNT 43 X10^3/uL (150.0-450.0); RED BLOOD COUNT 3.42 X10^6/uL (3.5-5.4); RED CELL DISTRIBUTION WIDTH 14.1 % (11.6-16.5); WHITE BLOOD COUNT 7.7 X10^3/uL (3.6-10.0)
[2020-03-08 06:37] LABS: ALBUMIN 2.1 g/dL (3.4-5.0); CALCIUM 7.9 mg/dL (8.5-10.1); CARBON DIOXIDE 26.7 mmol/L (21-32); COR CA(FOR HYPOALB) 9.4 mg/dL (8.5-10.1); CREATININE 1.39 mg/dL (0.55-1.02); TOTAL PROTEIN 5.7 g/dL (6.4-8.2)
[2020-03-08 07:03] LABS: BAND NEUTROPHILS % 5 % (0-10)
[2020-03-08 07:04] LABS: GIANT PLATELET FEW; PLATELET MORPHOLOGY COMMENT ABNORMAL (NORMAL)
[2020-03-08] MEDS ORDERED: LR 1000 ML IV 1,000 ML IV ONE (08:29)
[2020-03-08] MEDS: ROCEPHIN VIAL 1 GRAM 1 G in NS 100 ML IV + SPIKE MINIBAG* 100 ML IV SCH (21:26)
[2020-03-09] MEDS: D5 IV SCH ×4 (01:37→18:43)
[2020-03-09] MEDS: 1/4 NS IV SCH ×4 (01:37→18:43)
[2020-03-09] MEDS: KCL IV SCH ×4 (01:37→18:43)
[2020-03-09 05:45] LABS: BASOPHILS % (AUTO) 0.1 % (0.2-1.0); EOSINOPHILS # (AUTO) 0.2 x10^3/uL (0.0-0.2); EOSINOPHILS % (AUTO) 3.1 % (0.9-2.9); HEMATOCRIT 28.5 % (36.0-47.0); HEMOGLOBIN 9.5 g/dL (12.0-16.0); LYMPHOCYTES % (AUTO) 13.5 % (21.0-51.0); MEAN CORPUSCULAR HEMOGLOBIN 30.3 pg (27.0-34.0); MEAN CORPUSCULAR HGB CONC 33.5 g/dL (33.0-35.0); MEAN CORPUSCULAR VOLUME 90.6 fL (80.0-100.0); MEAN PLATELET VOLUME 11.8 fL (7.4-11.0); MONOCYTES # (AUTO) 0.4 x10^3/uL (0.3-0.8); MONOCYTES % (AUTO) 5.7 % (0.0-13.0); NEUTROPHILS # (AUTO) 5.7 x10^3/uL (2.2-4.8); NEUTROPHILS % (AUTO) 77.6 % (42.0-75.0); PLATELET COUNT 43 X10^3/uL (150.0-450.0); RED BLOOD COUNT 3.14 X10^6/uL (3.5-5.4); WHITE BLOOD COUNT 7.3 X10^3/uL (3.6-10.0)
[2020-03-09 05:58] LABS: PLATELET MORPHOLOGY COMMENT NORMAL (NORMAL)
[2020-03-09 06:04] LABS: ALANINE AMINOTRANSFERASE 54 Units/L (12-78); ALBUMIN 1.9 g/dL (3.4-5.0); ALKALINE PHOSPHATASE 94 Units/L (46-116); ASPARTATE AMINO TRANSFERASE 103 Units/L (15-37); BLOOD UREA NITROGEN 24 mg/dL (7-18); CALCIUM 7.6 mg/dL (8.5-10.1); CARBON DIOXIDE 24.6 mmol/L (21-32); COR CA(FOR HYPOALB) 9.3 mg/dL (8.5-10.1); COR NA(FOR HYPERGLY) 163 mmol/L (136-145); CREATININE 1.11 mg/dL (0.55-1.02); TOTAL PROTEIN 5.3 g/dL (6.4-8.2); eGFR NON BLACK RACES 52 (>60)
[2020-03-09 06:08] LABS: CHLORIDE 128 mmol/L (98-107); SODIUM 163 mmol/L (136-145)
[2020-03-09] MEDS ORDERED: LR 1000 ML IV 1,000 ML IV ONE (08:58)
[2020-03-09] MEDS: ROCEPHIN VIAL 1 GRAM 1 G in NS 100 ML IV + SPIKE MINIBAG* 100 ML IV SCH (21:27)
[2020-03-10] MEDS: D5 IV SCH (02:31)
[2020-03-10] MEDS: 1/4 NS IV SCH (02:31)
[2020-03-10] MEDS: KCL IV SCH (02:31)
[2020-03-10 05:38] LABS: ALANINE AMINOTRANSFERASE 62 Units/L (12-78); ALBUMIN 1.8 g/dL (3.4-5.0); ALKALINE PHOSPHATASE 98 Units/L (46-116); ASPARTATE AMINO TRANSFERASE 111 Units/L (15-37); BLOOD UREA NITROGEN 16 mg/dL (7-18); CALCIUM 7.6 mg/dL (8.5-10.1); CARBON DIOXIDE 27.1 mmol/L (21-32); COR CA(FOR HYPOALB) 9.4 mg/dL (8.5-10.1); TOTAL PROTEIN 4.9 g/dL (6.4-8.2); eGFR NON BLACK RACES 58 (>60)
[2020-03-10 06:08] LABS: BASOPHILS % (AUTO) 0.1 % (0.2-1.0); CHLORIDE 124 mmol/L (98-107); EOSINOPHILS # (AUTO) 0.2 x10^3/uL (0.0-0.2); EOSINOPHILS % (AUTO) 2.5 % (0.9-2.9); HEMATOCRIT 30.6 % (36.0-47.0); HEMOGLOBIN 9.8 g/dL (12.0-16.0); LYMPHOCYTES # (AUTO) 1.1 X10^3/uL (1.3-2.9); LYMPHOCYTES % (AUTO) 16.3 % (21.0-51.0); MEAN CORPUSCULAR HEMOGLOBIN 28.8 pg (27.0-34.0); MEAN CORPUSCULAR VOLUME 90.1 fL (80.0-100.0); MEAN PLATELET VOLUME 11.5 fL (7.4-11.0); MONOCYTES # (AUTO) 0.5 x10^3/uL (0.3-0.8); MONOCYTES % (AUTO) 6.7 % (0.0-13.0); NEUTROPHILS # (AUTO) 5.1 x10^3/uL (2.2-4.8); NEUTROPHILS % (AUTO) 74.4 % (42.0-75.0); PLATELET COUNT 49 X10^3/uL (150.0-450.0); RED CELL DISTRIBUTION WIDTH 13.4 % (11.6-16.5); SODIUM 158 mmol/L (136-145); WHITE BLOOD COUNT 6.9 X10^3/uL (3.6-10.0)
[2020-03-10 06:43] LABS: BAND NEUTROPHILS % 3 % (0-10)
[2020-03-10 06:44] LABS: PLATELET MORPHOLOGY COMMENT NORMAL (NORMAL)
[2020-03-10] MEDS: D5W 1000 ML IV 1,000 ML with POTASSIUM CHLORIDE INJ 40 MEQ VIAL 40 MEQ IV SCH ×4 (10:30→17:30)
[2020-03-10] MEDS: ROCEPHIN VIAL 1 GRAM 1 G in NS 100 ML IV + SPIKE MINIBAG* 100 ML IV SCH (22:18)
[2020-03-11] MEDS: D5W 1000 ML IV 1,000 ML with POTASSIUM CHLORIDE INJ 40 MEQ VIAL 40 MEQ IV SCH ×6 (02:29→17:33)
[2020-03-11 05:59] LABS: ALANINE AMINOTRANSFERASE 61 Units/L (12-78); ALBUMIN 1.8 g/dL (3.4-5.0); ALKALINE PHOSPHATASE 117 Units/L (46-116); ASPARTATE AMINO TRANSFERASE 101 Units/L (15-37); BLOOD UREA NITROGEN 10 mg/dL (7-18); CALCIUM 7.6 mg/dL (8.5-10.1); CARBON DIOXIDE 24.5 mmol/L (21-32); COR CA(FOR HYPOALB) 9.4 mg/dL (8.5-10.1); TOTAL PROTEIN 5.2 g/dL (6.4-8.2); eGFR NON BLACK RACES > 60 (>60)
[2020-03-11 06:01] LABS: CHLORIDE 118 mmol/L (98-107); SODIUM 152 mmol/L (136-145)
[2020-03-11] MEDS ORDERED: LINZESS PO ONE ×2 (06:50→11:13)
[2020-03-11] MEDS: ROCEPHIN VIAL 1 GRAM 1 G in NS 100 ML IV + SPIKE MINIBAG* 100 ML IV SCH (21:28)
[2020-03-12] MEDS: D5W 1000 ML IV 1,000 ML with POTASSIUM CHLORIDE INJ 40 MEQ VIAL 40 MEQ IV SCH ×4 (01:57→10:18)
[2020-03-12 05:53] LABS: ALANINE AMINOTRANSFERASE 64 Units/L (12-78); ALKALINE PHOSPHATASE 136 Units/L (46-116); ASPARTATE AMINO TRANSFERASE 88 Units/L (15-37); BLOOD UREA NITROGEN 7 mg/dL (7-18); CALCIUM 7.8 mg/dL (8.5-10.1); CARBON DIOXIDE 22.7 mmol/L (21-32); COR CA(FOR HYPOALB) 9.4 mg/dL (8.5-10.1); CREATININE 0.84 mg/dL (0.55-1.02); SODIUM 148 mmol/L (136-145); TOTAL PROTEIN 5.7 g/dL (6.4-8.2); eGFR NON BLACK RACES > 60 (>60)
[2020-03-12 06:07] LABS: CHLORIDE 115 mmol/L (98-107)
[2020-03-12] MEDS ORDERED: DULCOLAX SUPPOSITORY 10 MG RECTAL ONE (08:59)
[2020-03-12] MEDS ORDERED: MILK OF MAGNESIA PO SCH (11:00)
[2020-03-12 12:43] VITALS: BP 99/54
[2020-03-12] MEDS ORDERED: COLACE CAP 100 MG PO SCH (21:00)
== END 2020-03-12 16:30 | DRG 683 ==
LOC: ER 19:07 → OBS 22:03 → MED/SURG 03-06 16:57
PROVIDERS: ADMIT Internal Medicine; ATTEND Obstetrics & Gynecology Obstetrics
DX: N17.9 Acute kidney failure, unspecified; E86.0 Dehydration; E87.0 Hyperosmolality and hypernatremia; Z11.59 Encounter for screening for other viral diseases; F02.81 Dementia in other diseases classified elsewhere, unspecified severity, with behavioral disturbance; L89.322 Pressure ulcer of left buttock, stage 2; Z86.73 Personal history of transient ischemic attack (TIA), and cerebral infarction without residual deficits; R41.82 Altered mental status, unspecified; G30.9 Alzheimer's disease, unspecified; L89.319 Pressure ulcer of right buttock, unspecified stage; R00.0 Tachycardia, unspecified; E87.6 Hypokalemia; K59.00 Constipation, unspecified